=== PATIENT | male | born 2000 | race Caucasian/White ===

== ENCOUNTER 2020-11-27 04:57 | Emergency (ER) | payer OTHER ==
[2020-11-27 05:08] VITALS: TEMP 98.9
[2020-11-27] MEDS ORDERED: SODIUM CHLORIDE 0.9% 1,000 ML IV STA ×2 (05:28)
[2020-11-27] MEDS ORDERED: ONDANSETRON 4 MG/2 ML VIAL IVP STA (05:28)
[2020-11-27] MEDS ORDERED: MORPHINE SULFATE 4 MG/ML SYRINGE IV STA (05:28)
[2020-11-27] MEDS ORDERED: SODIUM CHLORIDE 0.9% 500 ML 500 ML IV STA (05:28)
--- NOTE | 2020-11-27 05:30 | ED ---
Abdominal Pain HPI - General Chief Complaint: Abdominal Pain Stated Complaint: Abd Pain Time Seen by Provider: 11/27/20 05:06 Source: patient Mode of arrival: ambulatory Limitations: no limitations - Related Data Allergies Allergy/AdvReac Type Severity Reaction Status Date / Time No Known Allergies Allergy Verified 11/27/20 05:08 Review of Systems ROS Statement: Those systems with pertinent positive or pertinent negative responses have been documented in the HPI. ROS Other: All systems not noted in ROS Statement are negative. Past Medical History Past Medical History: No Reported History History of Any Multi-Drug Resistant Organisms: None Reported Past Surgical History: No Surgical Hx Reported Past Psychological History: Anxiety Smoking Status: Never smoker Past Alcohol Use History: None Reported Past Drug Use History: Marijuana General Exam Limitations: no limitations Course Vital Signs 11/27/20 05:04 Temperature 98.9 F Pulse Rate 132 H Respiratory 20 Rate Blood Pressure 127/87 O2 Sat by Pulse 98 Oximetry Medical Decision Making - Lab Data Result diagrams: 11/27/20 05:51 11/27/20 05:51 Lab Results 11/27/20 11/27/20 11/27/20 Range/Units 05:51 05:51 05:51 WBC 6.1 (3.8-10.6) k/uL RBC 4.72 (4.30-5.90) m/uL Hgb 14.6 (13.0-17.5) gm/dL Hct 41.7 (39.0-53.0) % MCV 88.4 (80.0-100.0) fL MCH 30.9 (25.0-35.0) pg MCHC 35.0 (31.0-37.0) g/dL RDW 12.3 (11.5-15.5) % Plt Count 153 (150-450) k/uL MPV 7.6 Neutrophils % 59 % Lymphocytes % 30 % Monocytes % 7 % Eosinophils % 3 % Basophils % 0 % Neutrophils # 3.6 (1.3-7.7) k/uL Lymphocytes # 1.8 (1.0-4.8) k/uL Monocytes # 0.4 (0-1.0) k/uL Eosinophils # 0.2 (0-0.7) k/uL Basophils # 0.0 (0-0.2) k/uL Hyperchromasia Slight PT 12.1 H (9.0-12.0) sec INR 1.2 H (<1.2) APTT 25.5 (22.0-30.0) sec Sodium 140 (137-145) mmol/L Potassium 4.3 (3.5-5.1) mmol/L Chloride 103 (98-107) mmol/L Carbon Dioxide 29 (22-30) mmol/L Anion Gap 8 mmol/L BUN 14 (9-20) mg/dL Creatinine 0.75 (0.66-1.25) mg/dL Est GFR (CKD-EPI)AfAm >90 (>60 ml/min/1.73 sqM) Est GFR (CKD-EPI)NonAf >90 (>60 ml/min/1.73 sqM) Glucose 105 H (74-99) mg/dL Plasma Lactic Acid Guero (0.7-2.0) mmol/L Calcium 9.8 (8.4-10.2) mg/dL Total Bilirubin 0.7 (0.2-1.3) mg/dL AST 22 (17-59) U/L ALT 15 (4-49) U/L Alkaline Phosphatase 55 (38-126) U/L Total Protein 6.9 (6.3-8.2) g/dL Albumin 4.6 (3.5-5.0) g/dL Amylase 66 (30-110) U/L Lipase 42 (23-300) U/L Serum Alcohol <10 mg/dL 11/27/20 Range/Units 05:51 WBC (3.8-10.6) k/uL RBC (4.30-5.90) m/uL Hgb (13.0-17.5) gm/dL Hct (39.0-53.0) % MCV (80.0-100.0) fL MCH (25.0-35.0) pg MCHC (31.0-37.0) g/dL RDW (11.5-15.5) % Plt Count (150-450) k/uL MPV Neutrophils % % Lymphocytes % % Monocytes % % Eosinophils % % Basophils % % Neutrophils # (1.3-7.7) k/uL Lymphocytes # (1.0-4.8) k/uL Monocytes # (0-1.0) k/uL Eosinophils # (0-0.7) k/uL Basophils # (0-0.2) k/uL Hyperchromasia PT (9.0-12.0) sec INR (<1.2) APTT (22.0-30.0) sec Sodium (137-145) mmol/L Potassium (3.5-5.1) mmol/L Chloride (98-107) mmol/L Carbon Dioxide (22-30) mmol/L Anion Gap mmol/L BUN (9-20) mg/dL Creatinine (0.66-1.25) mg/dL Est GFR (CKD-EPI)AfAm (>60 ml/min/1.73 sqM) Est GFR (CKD-EPI)NonAf (>60 ml/min/1.73 sqM) Glucose (74-99) mg/dL Plasma Lactic Acid Guero 1.2 (0.7-2.0) mmol/L Calcium (8.4-10.2) mg/dL Total Bilirubin (0.2-1.3) mg/dL AST (17-59) U/L ALT (4-49) U/L Alkaline Phosphatase (38-126) U/L Total Protein (6.3-8.2) g/dL Albumin (3.5-5.0) g/dL Amylase (30-110) U/L Lipase (23-300) U/L Serum Alcohol mg/dL Disposition Clinical Impression: Abdominal pain Disposition: HOME SELF-CARE Condition: Good Instructions (If sedation given, give patient instructions): Abdominal Pain (ED) Is patient prescribed a controlled substance at d/c from ED?: No Referrals: Noris Suh MD [STAFF PHYSICIAN] - 1-2 days
[2020-11-27 06:10] LABS: Basophils % (A) 0 %; Eosinophils # (A) 0.2 k/uL (0-0.7); Eosinophils % (A) 3 %; HCT 41.7 % (39.0-53.0); HGB 14.6 gm/dL (13.0-17.5); Hyperchromasia Slight; Lymphocytes # (A) 1.8 k/uL (1.0-4.8); Lymphocytes % (A) 30 %; MCH 30.9 pg (25.0-35.0); MCV 88.4 fL (80.0-100.0); Mean Platelet Volume 7.6; Monocytes # (A) 0.4 k/uL (0-1.0); Monocytes % (A) 7 %; Neutrophils # (A) 3.6 k/uL (1.3-7.7); Neutrophils % (A) 59 %; Platelet Count 153 k/uL (150-450); RBC 4.72 m/uL (4.30-5.90); RDW 12.3 % (11.5-15.5); WBC 6.1 k/uL (3.8-10.6)
--- NOTE | 2020-11-27 06:20 | CT ---
EXAMINATION TYPE: CT abdomen pelvis w con DATE OF EXAM: 11/27/2020 COMPARISON: None HISTORY: Abd Pain CT DLP: 595.30 mGycm Automated exposure control for dose reduction was used. CONTRAST: Performed with IV Contrast, patient injected with 100 mL of Isovue 300. Lung bases are clear. There is no pleural effusion. Heart size is normal. There is no pericardial eff usion. Liver spleen stomach pancreas gallbladder appear normal. The bile ducts are not dilated. There is no adrenal mass. Kidneys show satisfactory contrast opacification. There is no hydronephrosi s. Ureters are not dilated. There is no retroperitoneal adenopathy. Appendix appears normal. Delayed images show normal renal excretion. There is no mesenteric edema. There is no ascites or free air. Bladder distends smoothly. There is no free fluid in the pelvis. Lumbar vertebra have normal spacing and alignment. Posterior elements are intact. There is no ino moni fracture. Bony pelvis is intact. Hip joints are intact. IMPRESSION: Negative CT scan abdomen and pelvis. Normal appendix.
[2020-11-27 06:23] LABS: ALT 15 U/L (4-49); AST 22 U/L (17-59); African American GFR (CKD) >90 (>60 ml/min/1.73 sqM); Albumin 4.6 g/dL (3.5-5.0); Alcohol <10 mg/dL; Alkaline Phosphatase 55 U/L (38-126); Amylase 66 U/L (30-110); Anion Gap 8 mmol/L; Blood Urea Nitrogen 14 mg/dL (9-20); Calcium 9.8 mg/dL (8.4-10.2); Carbon Dioxide 29 mmol/L (22-30); Chloride 103 mmol/L (98-107); Glucose 105 mg/dL (74-99); Lipase 42 U/L (23-300); Non-African American GFR(CKD) >90 (>60 ml/min/1.73 sqM); Potassium 4.3 mmol/L (3.5-5.1); Sodium 140 mmol/L (137-145); Total Bilirubin 0.7 mg/dL (0.2-1.3); Total Protein 6.9 g/dL (6.3-8.2)
[2020-11-27 06:43] LABS: INR 1.2 (<1.2); Partial Thromboplastin Time 25.5 sec (22.0-30.0); Prothrombin Time 12.1 sec (9.0-12.0)
[2020-11-27 07:03] VITALS: BP 111/66; PULSE 89; RESP 16
== END 2020-11-27 07:03 | disposition home or self-care (01) ==
LOC: EC 04:57
DX: R10.9 Unspecified abdominal pain (principal); F41.9 Anxiety disorder, unspecified
CPT/HCPCS: 36415; 80053; 82150; 83605; 83690; 84443; 85025; 85610; 85730; 74177; 99284; 96374; 96375; 96361; G0480; J2270; J2405; Q9967; 80320